=== PATIENT | male | born 1945 | race Caucasian/White ===

== ENCOUNTER 2021-07-06 00:46 | Day surgery (SDC) | payer MEDICARE, SELFPAY ==
[2021-06-24 11:12] VITALS: BMI 25.0
--- NOTE | 2021-07-05 12:37 | P.PNAN_ITS ---
Anes - Initial Pre Proc Eval Procedure: Operation Date: 07/06/21 09:00 Proposed Procedures p Screening Colonoscopy - Kaiden Peñaloza MD Date/Time: 07/05/21 12:37 Surgeon: Kaiden Peñaloza MD Pre Op Diagnosis: hx of colon polyps Patient Data Age: 76 Gender: M Height: 1.75 m Weight: 77 kg Allergies Allergy/AdvReac Type Severity Reaction Status Date / Time No Known Allergies Allergy Verified 07/06/21 07:39 Home Medications Medication Instructions Recorded Confirmed Type aspirin 81 mg tablet,delayed 81 mg PO DAILY 04/22/19 07/06/21 History release carvedilol 6.25 mg tablet 6.25 mg PO BID tablet 04/22/19 07/06/21 History qxgtkzfu-tgk-meege acid 300 1 tablet PO DAILY tablet 04/22/19 07/06/21 History mcg-lycopene 600 mcg-lutein 300 mcg tablet ramipril 5 mg capsule 5 mg PO DAILY 04/22/19 07/06/21 History atorvastatin 80 mg tablet 80 mg PO QHS tablet 11/11/20 07/06/21 History Patient hx anesthesia problems: none Family hx anesthesia problems: none Results Review: All pre-operative results and documents have been reviewed as part of the pre-operative evaluation. [facility] Past Medical History Medical History CAD in [place] artery Dyslipidemia Essential (primary) hypertension Heart attack 2007 History of colon polyps Intention tremor Surgical History Surgical History History of coronary artery stent placement 2007 [place] teeth extracted Family History Family History Father Carcinoma of colon Mother Cerebrovascular accident Social History Social History Smoking status: Never smoker Alcohol intake: never Substance use: never Substance use type: does not use Living arrangements: with family Spiritual care concerns: No Anes - Eval Final PreProcedure Day of Procedure 07/05/21 12:37 Patient weight: overweight Heart: regular rate and rhythm Lungs: clear to auscultation and normal air movement Airway: Mallampati scale class II Neurological: alert and oriented Last oral intake: >/= 8 hours ASA classification: III Emergent: no Anesthetic plan: proceed Anesthesia type and monitoring: general GIVS and standard monitoring Results Review: All pre-operative results and documents have been reviewed as part of the pre-operative evaluation. Informed Consent: The patient's anesthetic plan and its attendant risks and benefits were discussed with the patient/family/POA. Questions were solicited and answers provided to the satisfaction of the patient/family/POA.
[2021-07-06 07:40] VITALS: BP 136/85; PULSE 80; RESP 17; TEMP 36.6; O2SAT 98; BMI 24.5
[2021-07-06] MEDS: LACTATED RINGERS 1,000 ML 150 ML IV CONT (07:54)
--- NOTE | 2021-07-06 08:10 | WPDGICN ---
Assessment and Plan Assessment and plan (1) Family history of colon cancer in father: Code(s): Z80.0 - Family history of malignant neoplasm of digestive organs Status: Acute Assessment and Plan: Patient's father had colon cancer. For this reason surveillance colonoscopy has been advised at 5 year intervals. (2) History of colon polyps: Code(s): Z86.010 - Personal history of colonic polyps Status: Inactive Assessment and Plan: Patient has a prior history of colon polyp. For this reason surveillance colonoscopy is been performed at 5 year intervals. GI Consult Note Consult date/time: 07/06/21 08:10 HPI: Mando Shaikh is a 76 year old male Presents for screening colonoscopy. Patient's current weight appetite and bowel movements are normal. He denies abdominal pain. He has had no bleeding. Family history is significant that his father had colon cancer. Patient himself has had colon polyps in the past. Previously followed by Dr. Zabala, most recent colonoscopy 2016. Patient presents today for neoplasia screening. Review of Systems Review of Systems: All systems reviewed & are unremarkable except as noted in HPI and below PMFSH Past Medical History Medical History (Updated 07/06/21 @ 08:11 by Kaiden Peñaloza MD) CAD in [place] artery Dyslipidemia Essential (primary) hypertension Heart attack 2007 History of colon polyps Intention tremor Surgical History Surgical History History of coronary artery stent placement 2007 [place] teeth extracted Family History Family History Father Carcinoma of colon Mother Cerebrovascular accident Social History Social History Smoking status: Never smoker Alcohol intake: never Substance use: never Substance use type: does not use Living arrangements: with family Spiritual care concerns: No Meds Home Medications and Allergies Home Medications Medication Instructions Recorded Confirmed Type aspirin 81 mg tablet,delayed 81 mg PO DAILY 04/22/19 07/06/21 History release carvedilol 6.25 mg tablet 6.25 mg PO BID tablet 04/22/19 07/06/21 History tambljyv-zln-zmbqb acid 300 1 tablet PO DAILY tablet 04/22/19 07/06/21 History mcg-lycopene 600 mcg-lutein 300 mcg tablet ramipril 5 mg capsule 5 mg PO DAILY 04/22/19 07/06/21 History atorvastatin 80 mg tablet 80 mg PO QHS tablet 11/11/20 07/06/21 History Allergies Allergy/AdvReac Type Severity Reaction Status Date / Time No Known Allergies Allergy Verified 07/06/21 07:39 Vital Signs Vital Signs - 24 hr 07/06/21 07:40 Temperature 97.9 F Pulse Rate 80 Respiratory Rate 17 Blood Pressure 136/85 Pulse Oximetry 98 Exam Narrative: Physical exam reveals patient to be alert. Vital signs stable. HEENT exam is unremarkable. Patient is anicteric. Lungs are clear to auscultation and percussion. Heart is without murmur or extra sounds. Abdominal exam bowel sounds are present soft nontender with no organomegaly. Digital external rectal exam is normal.
[2021-07-06 09:09] VITALS: BP 92/56; PULSE 74; RESP 20; O2SAT 99
[2021-07-06 09:19] VITALS: BP 114/78; PULSE 66; RESP 18; O2SAT 99
[2021-07-06 09:29] VITALS: BP 124/81; PULSE 60; RESP 20; O2SAT 100
== END 2021-07-06 09:40 | disposition home or self-care (01) ==
PROVIDERS: PCP Family Medicine; Visit Provider Internal Medicine Gastroenterology
PROC: 0DJD8ZZ Inspection of Lower Intestinal Tract, Via Natural or Artificial Opening Endoscopic (ICD-10-PCS; CPT 45378; principal; 2021-07-06 09:00)
DX: Z12.11 Encounter for screening for malignant neoplasm of colon (principal); K63.5 Polyp of colon; I10 Essential (primary) hypertension; I25.10 Atherosclerotic heart disease of native coronary artery without angina pectoris; E78.5 Hyperlipidemia, unspecified; G25.2 Other specified forms of tremor; Z95.5 Presence of coronary angioplasty implant and graft; Z80.0 Family history of malignant neoplasm of digestive organs
CPT/HCPCS: 45380; 88305; J2704; J7120

== ENCOUNTER 2021-11-23 08:09 | Outpatient (CLI) | payer MEDICARE, SELFPAY ==
[2021-11-23 18:55] LABS: Basophils Percent Auto 0.7 % (0.2-1.2); Eosinophils Percent Auto 0.7 % (0-4.4); Hematocrit 44.3 % (42.0-52.0); Hemoglobin 14.7 g/dL (14.0-18.0); Immature Granulocyte Absolute 0.01 K/mm3 (0.00-0.031); Immature Granulocyte Percent A 0.3 % (0-0.5); Lymphocytes Absolute Auto 1.23 K/mm3 (0.9-3.2); Lymphocytes Percent Auto 41.8 % (18.3-44.2); Mean Corpuscular HGB Conc 33.2 g/dl (32-36); Mean Corpuscular Hemoglobin 29.8 pg (26-34); Mean Corpuscular Volume 89.9 fl (80-100); Mean Platelet Volume 11.4 fl (7.4-10.4); Monocytes Absolute Auto 0.4 K/mm3 (0.1-0.6); Neutrophils Absolute Auto 1.2 K/mm3 (1.3-6.7); Neutrophils Percent Auto 41.5 % (45.5-73.1); Platelet Count Result 130 k/mm3 (150-375); Red Blood Count 4.93 M/mm3 (4.6-6.20); Red Cell Distribution Width 13.1 % (11.5-14.5); White Blood Count 2.9 K/mm3 (4.5-10.0)
[2021-11-23 19:05] LABS: Alanine Aminotransferase 34 U/L (6-50); Albumin Level 3.8 g/dL (3.5-5.1); Alkaline Phosphatase 88 U/L (38-126); Anion Gap 9 mmol/L (8-16); Aspartate Amino Transferase 50 U/L (17-59); Bilirubin,Total 0.5 mg/dL (0.2-1.3); Blood Urea Nitrogen 15 mg/dL (9-20); Calcium 8.6 mg/dL (8.4-10.2); Carbon Dioxide 30 mmol/L (22-30); Chloride 97 mmol/L (98-107); Cholesterol 102 mg/dL (0-200); Estimated Glomerular Filt Rate > 60; Glucose 94 mg/dL (65-110); HDL Direct 46 mg/dL; Potassium 4.3 mmol/L (3.4-5.0); Sodium 136 mmol/L (137-145); Triglycerides 72 mg/dL (<150)
[2021-11-23 19:16] LABS: LDL Cholesterol Direct 33 mg/dL
== END 2021-11-23 08:10 | disposition home or self-care (01) ==
LOC: ANHGOSHLAB 08:11
PROVIDERS: PCP Family Medicine; Visit Provider Nurse Practitioner
DX: E78.5 Hyperlipidemia, unspecified (principal); I10 Essential (primary) hypertension
CPT/HCPCS: 36415; 80053; 80061; 85025

== ENCOUNTER 2022-05-30 10:32 | Outpatient (CLI) | payer MEDICARE, SELFPAY ==
[2022-05-30 20:47] LABS: Vitamin D 25 Hydroxy 41.2 ng/mL
[2022-05-30 20:51] LABS: Alanine Aminotransferase 49 U/L (6-50); Albumin Level 4.4 g/dL (3.5-5.1); Alkaline Phosphatase 111 U/L (38-126); Anion Gap 7 mmol/L (8-16); Aspartate Amino Transferase 67 U/L (17-59); Bilirubin,Total 0.9 mg/dL (0.2-1.3); Blood Urea Nitrogen 11 mg/dL (9-20); Calcium 9.2 mg/dL (8.4-10.2); Carbon Dioxide 29 mmol/L (22-30); Chloride 103 mmol/L (98-107); Estimated Glomerular Filt Rate > 60; Glucose 82 mg/dL (65-110); Potassium 4.2 mmol/L (3.4-5.0); Sodium 139 mmol/L (137-145)
[2022-05-30 21:12] LABS: Prostate Specific Antigen 0.8 ng/mL (< OR = 4.0)
== END 2022-05-30 10:33 | disposition home or self-care (01) ==
LOC: ANHGOSHLAB 10:34
PROVIDERS: PCP Family Medicine; Visit Provider Family Medicine
DX: E53.8 Deficiency of other specified B group vitamins (principal); E78.5 Hyperlipidemia, unspecified; I10 Essential (primary) hypertension; Z12.5 Encounter for screening for malignant neoplasm of prostate; G25.2 Other specified forms of tremor; E55.9 Vitamin D deficiency, unspecified
CPT/HCPCS: 36415; 80053; 82306; 82607; 84153; 84443; G0103

== ENCOUNTER 2022-12-19 10:53 | Outpatient (CLI) | payer MEDICARE, SELFPAY ==
[2022-12-19 18:42] LABS: Alanine Aminotransferase 36 U/L (6-50); Albumin Level 4.1 g/dL (3.5-5.1); Alkaline Phosphatase 105 U/L (38-126); Anion Gap 2 mmol/L (8-16); Aspartate Amino Transferase 39 U/L (17-59); Bilirubin,Total 0.7 mg/dL (0.2-1.3); Blood Urea Nitrogen 10 mg/dL (9-20); Carbon Dioxide 32 mmol/L (22-30); Chloride 104 mmol/L (98-107); Estimated Glomerular Filt Rate > 60; Glucose 97 mg/dL (65-110); Potassium 4.5 mmol/L (3.4-5.0); Sodium 138 mmol/L (137-145)
== END 2022-12-19 10:54 | disposition home or self-care (01) ==
PROVIDERS: PCP Family Medicine; Visit Provider Family Medicine
DX: E78.5 Hyperlipidemia, unspecified (principal); I25.10 Atherosclerotic heart disease of native coronary artery without angina pectoris; I10 Essential (primary) hypertension; Z79.899 Other long term (current) drug therapy
CPT/HCPCS: 36415; 80053

== ENCOUNTER 2023-06-01 08:25 | Outpatient (CLI) | payer MEDICARE, SELFPAY ==
[2023-06-01 19:27] LABS: Alanine Aminotransferase 50 U/L (6-50); Albumin Level 4.2 g/dL (3.5-5.1); Alkaline Phosphatase 115 U/L (38-126); Anion Gap 4 mmol/L (8-16); Aspartate Amino Transferase 55 U/L (17-59); Bilirubin,Total 0.8 mg/dL (0.2-1.3); Blood Urea Nitrogen 10 mg/dL (9-20); Calcium 9.7 mg/dL (8.4-10.2); Carbon Dioxide 32 mmol/L (22-30); Chloride 104 mmol/L (98-107); Cholesterol 128 mg/dL (0-200); Estimated Glomerular Filt Rate > 60; Glucose 98 mg/dL (65-110); HDL Direct 65 mg/dL; Potassium 4.5 mmol/L (3.4-5.0); Sodium 140 mmol/L (137-145); Triglycerides 84 mg/dL (<150)
[2023-06-01 19:33] LABS: Basophils Absolute Auto 0.1 K/mm3 (0.0-0.1); Basophils Percent Auto 1.1 % (0.2-1.2); Eosinophils Absolute Auto 0.4 K/mm3 (0-0.3); Eosinophils Percent Auto 8.4 % (0-4.4); Hematocrit 47.1 % (42.0-52.0); Hemoglobin 15.5 g/dL (14.0-18.0); Lymphocytes Absolute Auto 1.66 K/mm3 (0.9-3.2); Mean Corpuscular HGB Conc 32.9 g/dl (32-36); Mean Corpuscular Hemoglobin 29.9 pg (26-34); Mean Corpuscular Volume 90.9 fl (80-100); Monocytes Absolute Auto 0.5 K/mm3 (0.1-0.6); Monocytes Percent Auto 9.5 % (2.6-8.5); Neutrophils Absolute Auto 2.2 K/mm3 (1.3-6.7); Platelet Count Result 175 k/mm3 (150-375); Red Blood Count 5.18 M/mm3 (4.6-6.20); Red Cell Distribution Width 12.5 % (11.5-14.5); White Blood Count 4.7 K/mm3 (4.5-10.0)
[2023-06-01 19:56] LABS: LDL Cholesterol Direct 58 mg/dL
[2023-06-01 20:15] LABS: Prostate Specific Antigen 0.9 ng/mL (< OR = 4.0)
[2023-06-01 20:46] LABS: Vitamin D 25 Hydroxy 36.2 ng/mL
== END 2023-06-01 08:26 | disposition home or self-care (01) ==
LOC: ANHGOSHLAB 08:27
PROVIDERS: PCP Family Medicine; Visit Provider Family Medicine
DX: E78.5 Hyperlipidemia, unspecified (principal); E53.8 Deficiency of other specified B group vitamins; Z12.5 Encounter for screening for malignant neoplasm of prostate; I10 Essential (primary) hypertension; G25.2 Other specified forms of tremor; E55.9 Vitamin D deficiency, unspecified
CPT/HCPCS: 36415; 80053; 80061; 82306; 82607; 84153; 84443; 85025; G0103

== ENCOUNTER 2023-12-21 09:29 | Outpatient (CLI) | payer MEDICARE, SELFPAY ==
[2023-12-21 16:47] LABS: Alanine Aminotransferase 33 U/L (6-50); Albumin Level 4.2 g/dL (3.5-5.1); Alkaline Phosphatase 111 U/L (38-126); Anion Gap 6 mmol/L (4-12); Aspartate Amino Transferase 74 U/L (17-59); Bilirubin,Total 0.6 mg/dL (0.2-1.3); Blood Urea Nitrogen 11 mg/dL (9-20); Calcium 9.3 mg/dL (8.4-10.2); Carbon Dioxide 30 mmol/L (22-30); Chloride 102 mmol/L (98-107); Estimated Glomerular Filt Rate > 60; Glucose 82 mg/dL (65-110); Potassium 4.2 mmol/L (3.4-5.0); Sodium 138 mmol/L (137-145)
== END 2023-12-21 09:30 | disposition home or self-care (01) ==
PROVIDERS: PCP Family Medicine; Visit Provider Family Medicine
DX: I10 Essential (primary) hypertension (principal); Z79.899 Other long term (current) drug therapy
CPT/HCPCS: 36415; 80053

== ENCOUNTER 2024-06-12 10:22 | Outpatient (CLI) | payer MEDICARE, SELFPAY ==
--- OUTSIDE RECORDS SUMMARY | 2024-06-12 11:50 | XMS_ITS | Clinical Summary ---
Author Organization [facility] Address [address], [address] [address] Phone Care Team Providers Care Hall Director Name Role Phone Pablo Akers MD Primary Care Provider [phone] Kaiden Zabala DO Unavailable [phone] Allergies No known active allergies Medications polyethylene glycol (MIRALAX) Powder Mix the entire bottle with 64 oz of a clear liquid. Use as directed by the office for colonoscopy prep. 255 g 0 6 Active atorvastatin (LIPITOR) 80 MG Tablet Take 80 mg by mouth daily. 11 7 Active carvedilol (COREG) 6.25 MG Tablet Take 1 Tab by mouth 2 times daily. 11 7 Active ramipril (ALTACE) 5 MG Capsule Take 5 mg by mouth daily. 5 7 Active Aspirin 81 MG Tablet Take 81 mg by mouth daily. Active Multiple Vitamins-Minera ls (MULTIVITAMIN PO) Take 1 Tab by mouth daily. Active fish oil-omega-3 fatty acids 1000 MG Capsule Take 1,000 mg by mouth daily. Active Immunizations Immunization Administration Dates Next Due Covid-19, Mrna, Lnp-s, Pf, 30 Mcg/0.3 Ml Dose (Vanessa dunbar) 06/16/2020,05/21/2020 Family History Medical History Relation Name Comments Colon Cancer Father Stroke Mother Heart Disease Sister Relation Name Status Comments Father Mother Sister Social History Tobacco Use Types Packs/Day Years Used Date Smoking Tobacco: Never Smokeless Tobacco: Never Alcohol Use Standard Drinks/Week Comments No 0 (1 standard drink = 0.6 oz pur e alcohol) Sex and Gender Information Value Date Recorded Sex Assigned at Not on file Legal Sex Male 10:14 PM CDT Gender Identity Not on file Sexual Orientation Not on file Plan of Treatment Health Maintenance Due Date Last Done Comments Hepatitis C Virus (HCV) Screening 1945 TdaP Immunization 1945 Zoster Immunization (1 of 2) 06/14/1993 Respiratory Syncytial Virus (RSV) Immunization (Adult) (1 - 1-dose 75+ series) 06/14/2018 Influenza Immunization (#1) 11/26/202301/25, 02/01/2018 SARS-COV-2 Immunization ( season) 2023 02/02/2021, 06/16/2020, 05/21/2020 DTaP/Tdap/Td Immunization Discontinued 08/04/2008 Pneumococcal Immunization (50+ years) Completed 02/23/2016, 08/04/2008 Pneumococcal Immunization Combined Discontinued 02/23/2016, 08/04/2008 Hepatitis B Immunization Aged Out No longer eligible based on patient's age to complete this topic Meningococcal Immunization (ACWY) Aged Out No longer eligible based on patient's age to complete this topic Rotavirus Immunization Aged Out No lo nger eligible based on patient's age to complete this topic Insurance [facility] Care Teams Hall Director Relationship Specialty Start Date End Date Pablo Akers MD [address] [place] [address] PCP - General Family Medicine 02/16/16 Kaiden Zabala DO [address] [place] [address] Gastroenterology 05/25/16
--- OUTSIDE RECORDS SUMMARY | 2024-06-12 11:50 | XMS_ITS | Clinical Summary ---
Author Organization [facility] [address] Address [address] [place] [address] Care Team Providers Care Newspaper Peddler Name Role Phone Ander Clark MD Primary Care Provider Allergies No known active allergies Medications aspirin (ENTERIC COATED ASPIRIN) 81 mg tablet take 1 tablet (81MG) by oral route every day 30 0 9 Active multivitamin tabletIndicatio ns:Vitamin Deficiency Prevention Take 1 tablet by mouth Active ramipriL (ALTACE) 5 mg capsule TAKE 1 CAPSULE BY MOUTH EVERY DAY 90 capsule 3 4 Active atorvastatin (LIPITOR) 80 mg tablet TAKE 1 TABLET BY MOUTH EVERY DAY 90 tablet 3 4 Active carvediloL (COREG) 6.25 mg tablet Take 1 tablet (6.25 mg total) by mouth 2 (two) times a day 7 Active carvediloL (COREG) 6.25 mg tablet TAKE 1 TABLET BY MOUTH TWICE A DAY WITH FOOD 180 tablet 2 5 05/20/19 25 Discontinu ed(Patient Reported) Active Problems Problem Noted Date Diagnosed Date Essential hypertension 05/16/2018 S/P drug eluting coronary stent placement 2018 Essential tremor 05/24/2017 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/10/2015 Overview (06/30/2016): Old [place] (myocardial infarction) Post percutaneous transluminal coronary angiopla sty 10/08/2013 Overview (06/30/2016): STATUS-POST PTCA Chronic ischemic heart disease 08/10/2013 Overview (06/29/2016): CHR ISCHEMIC HRT DIS NEC Coronary arteriosclerosis in [place] artery 08/10 Overview (06/30/2016): CRNRY ATHRSCL NATVE VSSL 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 Overview (06/30/2016): MIXED HYPERLIPIDEMIA Acute myocardial infarction of anterior wall Overview (06/30/2016): AMI ANTERIOR WALL,SUBSEQ Encounters Date Type Department Care Team Description 05/20/2024 11:45 AM AUGER SUPERVISOR Office Visit [facility] [address] [place] [address] Dona Pacheco MD Multiple-type hyperlipidemia (Primary Dx); Coronary arteriosclerosis in [place] artery; S/P drug eluting coronary stent placement; Essential hypertension from Last 3 Months Medical History Medical History Date Comments 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 CAD (coronary artery disease) 2008 H/ O ant VA and LAD stent Social History Tobacco Use Types Packs/Day Years Used Date Smoking Tobacco: Former Smokeless Tobacco: Never Tobacco Cessation:Counseling Given: Not Answered Alcohol Use Standard Drinks/Week Comments No 0 (1 standard drink = 0.6 oz pur e alcohol) Sex and Gender Information Value Date Recorded Sex Assigned at Not on file Legal Sex Male 8:03 PM AUGER SUPERVISOR Gender Identity Not on file Sexual Orientation Not on file Obstetrics History Last Filed Vital Signs Vital Sign Reading Time Taken Comments Blood Pressure 116/62 05/20/2024 11:39 AM AUGER SUPERVISOR Pulse 57 05/20/2024 11:39 AM AUGER SUPERVISOR Temperature - - Respiratory Rate - - Oxygen Saturation 93% 05/20/2024 11:39 AM AUGER SUPERVISOR Inhaled Oxygen Concentration - - Weight 76.2 kg (168 lb) 05/20/2024 11:39 AM AUGER SUPERVISOR Height 175.3 cm (5' 9 ) 05/20/2024 11:39 AM AUGER SUPERVISOR Body Mass Index 24.81 05/20/2024 11:39 AM AUGER SUPERVISOR Plan of Treatment Health Maintenance Due Date Last Done Comments Depression Screening 1945 Fall Risk Assessment 1945 Hepatitis B Screening 06/14[birth year]1961 Abdominal Aortic Aneurysm (AAA) Screen 06/14/2008 Well Visit 65+ 06/14/2008 Zoster Vaccine (2 of 2) 10/05/2020 08/10/2020 Covid-19 Vaccine (3 - season) 2023, 05/21/2020 Influenza Vaccine (#1) 2023 02/07/2019, 2017 DTaP/Tdap/Td Vaccine (2 - Td or Tdap) 08/10/2030, 08/04/2008 Pneumococcal vaccine 65+ Completed 02/23/2016, 07/25 Procedures Procedure Name Priority Date/Time Associated Diagnosis Comments POCT LIPID PANEL Routine 05/20/2024 11:5 2 AM AUGER SUPERVISOR Multiple-type hyperlipidemia Coronary arteriosclerosis in [place] artery from Last 3 Months Results * POCT lipid panel (05/20/2024 11:52 AM AUGER SUPERVISOR) Triglycerides, POC 70 mg/dL LDL Cholesterol POC 64 mg/dL Non-HDL Cholesterol, POC 71 mg/dL Cholesterol Total, POC 149 mg/dL Capillary blood 05/20/2024 1 1:52 AM AUGER SUPERVISOR Dona Pacheco MD POINT OF CARE TEST O RDERABLES Final Result from Last 3 Months Insurance MEDICARE MEDICARE [facility] MEDICARE SUPPLEMENT Care Teams Newspaper Peddler Relationship Specialty Start Date End Date Ander Clark MD PCP - General Family Practice 05/16/18
--- OUTSIDE RECORDS SUMMARY | 2024-06-12 11:50 | XMS_ITS | Clinical Summary ---
Author Organization [facility] Address [facility] [place] [address] Care Team Providers Care Hospice Fellow Name Role Phone Unavailable Primary Care Provider Unavailabl e Social History Tobacco Use Types Packs/Day Years Used Date Smoking Tobacco: Never Assessed Sex and Gender Information Value Date Recorded Sex Assigned at Not on file Legal Sex Male 7:06 PM CDT Gender Identity Not on file Sexual Orientation Not on file Plan of Treatment Health Maintenance Due Date Last Done Comments DTaP, Tdap and Td Vaccines ( 1 - Tdap) 06/14/1962 Zoster Vaccines (1 of 2) 06/14/1993 Pneumococcal Vaccine: 65+ Ye ars (1 of 1 - PCV) 06/14/2008 RSV Immunization or 60+ Years (1 - 1-dose 75+ series) 06/14/2018 COVID-19 Vaccine ( - 2023-2 5 season) 2023 Influenza Adult (#1) 2023 Meningococcal B Vaccine Aged Out No l onger eligible based on patient's age to complete this topic Meningococcal Vaccine Aged Out No keshia tja eligible based on patient's age to complete this topic RSV Immunizations Under 20 Months Aged Out No longer eligible based on patient's age to complete this topic
--- OUTSIDE RECORDS SUMMARY | 2024-06-12 11:50 | XMS_ITS | Referral Summary ---
Author Organization [facility] [address] [place] [address] Care Team Providers Care Communications Assistant Name Role Phone nAder Clark MD Primary Care Provider Encounters Date Type Department Care Team Description 05/20/2024 11:45 AM TROUBLE DISPATCHER Office Visit [facility] [address] [place] [address] Dona Pachceo MD Multiple-type hyperlipidemia (Primary Dx); Coronary arteriosclerosis in [place] artery; S/P drug eluting coronary stent placement; Essential hypertension from Last 3 Months Allergies No known active allergies Medications aspirin [...] 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/10/2015 Overview (06/30/2016): Old [place] (myocardial infarction) Post percutaneous transluminal coronary angiopla sty 10/08/2013 Overview (06/30/2016): STATUS-POST PTCA Chronic ischemic heart disease 08/10/2013 Overview (06/29/2016): CHR ISCHEMIC HRT DIS NEC Coronary arteriosclerosis in [place] artery 08/10 Overview (06/30/2016): CRNRY ATHRSCL NATVE VSSL 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 Overview (06/30/2016): MIXED HYPERLIPIDEMIA Acute myocardial infarction of anterior wall Overview (06/30/2016): AMI ANTERIOR WALL,SUBSEQ Social History Tobacco Use Types Packs/Day Years Used Date Smoking Tobacco: Former Smokeless Tobacco: Never Tobacco Cessation:Counseling Given: Not Answered Alcohol Use Standard Drinks/Week Comments No 0 (1 standard drink = 0.6 oz pur e alcohol) Sex and Gender Information Value Date Recorded Sex Assigned at Not on file Legal Sex Male 8:03 PM TROUBLE DISPATCHER Gender Identity Not on file Sexual Orientation Not on file Last Filed Vital Signs Vital Sign Reading Time Taken Comments Blood Pressure 116/62 05/20/2024 11:39 AM TROUBLE DISPATCHER Pulse 57 05/20/2024 11:39 AM TROUBLE DISPATCHER Temperature - - Respiratory Rate - - Oxygen Saturation 93% 05/20/2024 11:39 AM TROUBLE DISPATCHER Inhaled Oxygen Concentration - - Weight 76.2 kg (168 lb) 05/20/2024 11:39 AM TROUBLE DISPATCHER Height 175.3 cm (5' 9 ) 05/20/2024 11:39 AM TROUBLE DISPATCHER Body Mass Index 24.81 05/20/2024 11:39 AM TROUBLE DISPATCHER Plan of Treatment Not on file Procedures Procedure Name Priority Date/Time Associated Diagnosis Comments POCT LIPID PANEL Routine 05/20/2024 11:5 2 AM TROUBLE DISPATCHER Multiple-type hyperlipidemia Coronary arteriosclerosis in [place] artery from Last 3 Months Results * POCT lipid panel (05/20/2024 11:52 AM TROUBLE DISPATCHER) Triglycerides, POC 70 mg/dL LDL Cholesterol POC 64 mg/dL Non-HDL Cholesterol, POC 71 mg/dL Cholesterol Total, POC 149 mg/dL Capillary blood 05/20/2024 1 1:52 AM TROUBLE DISPATCHER us Dona Pacheco MD POINT OF CARE TEST O RDERABLES Final Result from Last 3 Months Insurance MEDICARE MEDICARE [facility] MEDICARE SUPPLEMENT Care Teams Communications Assistant Relationship Specialty Start Date End Date Ander Clark MD PCP - General Family Practice 05/16/18
[2024-06-12 13:18] LABS: Basophils Percent Auto 0.8 % (0.2-1.2); Eosinophils Absolute Auto 0.2 K/mm3 (0-0.3); Eosinophils Percent Auto 4.7 % (0-4.4); Hematocrit 45.7 % (42.0-52.0); Hemoglobin 15.1 g/dL (14.0-18.0); Immature Granulocyte Absolute 0.01 K/mm3 (0.00-0.031); Immature Granulocyte Percent A 0.2 % (0-0.5); Lymphocytes Absolute Auto 1.88 K/mm3 (0.9-3.2); Lymphocytes Percent Auto 36.4 % (18.3-44.2); Mean Corpuscular Hemoglobin 30.1 pg (26-34); Mean Platelet Volume 10.9 fl (7.4-10.4); Monocytes Absolute Auto 0.5 K/mm3 (0.1-0.6); Monocytes Percent Auto 8.7 % (2.6-8.5); Neutrophils Absolute Auto 2.5 K/mm3 (1.3-6.7); Neutrophils Percent Auto 49.2 % (45.5-73.1); Platelet Count Result 170 k/mm3 (150-375); Red Blood Count 5.02 M/mm3 (4.6-6.20); Red Cell Distribution Width 13.1 % (11.5-14.5); White Blood Count 5.2 K/mm3 (4.5-10.0)
[2024-06-12 13:35] LABS: Hemoglobin A1C 5.4 % (<5.7)
[2024-06-12 14:00] LABS: Vitamin D 25 Hydroxy 31.9 ng/mL
[2024-06-12 16:20] LABS: Alanine Aminotransferase 43 U/L (6-50); Albumin Level 4.4 g/dL (3.5-5.1); Alkaline Phosphatase 112 U/L (38-126); Anion Gap 7 mmol/L (4-12); Aspartate Amino Transferase 60 U/L (17-59); Bilirubin,Total 0.8 mg/dL (0.2-1.3); Blood Urea Nitrogen 9 mg/dL (9-20); Calcium 9.5 mg/dL (8.4-10.2); Carbon Dioxide 29 mmol/L (22-30); Chloride 103 mmol/L (98-107); Cholesterol 127 mg/dL (0-200); Estimated Glomerular Filt Rate > 60; Glucose 94 mg/dL (65-110); HDL Direct 65 mg/dL; Potassium 4.7 mmol/L (3.4-5.0); Sodium 139 mmol/L (137-145); Triglycerides 81 mg/dL (<150)
[2024-06-12 16:31] LABS: LDL Cholesterol Direct 39 mg/dL
[2024-06-12 16:51] LABS: Prostate Specific Antigen 0.8 ng/mL (< OR = 4.0)
== END 2024-06-12 10:23 | disposition home or self-care (01) ==
LOC: ANHGOSHLAB 10:23
PROVIDERS: PCP Family Medicine; Visit Provider Family Medicine
DX: E78.5 Hyperlipidemia, unspecified (principal); E53.8 Deficiency of other specified B group vitamins; I10 Essential (primary) hypertension; R73.9 Hyperglycemia, unspecified; E55.9 Vitamin D deficiency, unspecified; Z12.5 Encounter for screening for malignant neoplasm of prostate
CPT/HCPCS: 36415; 80053; 80061; 82306; 82607; 83036; 84153; 84443; 85025; G0103

== ENCOUNTER 2024-07-08 14:15 | Outpatient (RCR) | payer MEDICARE, SELFPAY ==
--- NOTE | 2024-06-18 08:54 | OTOPEVAL1 ---
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 He reports the left middle finger is stiff, lacks extension at the PIP joint. He reports he has more stiffness and tightness vs. pain. Intermittent paresthesia, which he reports is worse with prolonged positioning at night. He feels pretty good throughout the day when he's up, moving, and using his hands. Reported Pain Level Pain Score 0: Self Report Assessment OT Clinical Summary Patient referred to OT with dx of flexion deformity of bilateral hands/finger joints. He presents with arthritic changes to the PIP/DIP joints of his fingers, left worse than right. After a set of active ROM and putty exercises the fingers became more limber and patient reports feeling better. Plan to have patient complete his HEP x3 weeks independently and return for a reassessment/follow up and assess for discharge/ HEP progression. Thank you for this referral. Plan of Care Interventions Therapeutic Exercise,Manual Therapy,Therapeutic Activities,Paraffin OT Services Indicated Yes Treatment Frequency and follow up in 3 weeks Duration These treatments will address the objective and functional deficits as defined above. The patient will be advanced safely and appropriately in order for the patient to progress towards his/her prior level of function. Additional exercises will be introduced and as well as a comprehensive home exercise program upon discharge, if needed, ?to ensure carryover of functional gains achieved in the clinic. This treatment plan has been reviewed and agreement upon by the patient.
--- NOTE | 2024-06-18 08:54 | OPREHPOC ---
Outpatient Therapy Plan of Care This is a Multidisciplinary Plan of Care that may contain components documented by all disciplines (PT, OT, and ST.) OT Problem 1 OT Problem #1 Knowledge Deficit OT Goal 1 Goal / Goal Update Pt to be indep with HEP. Target Visit 2 OT Problem 2 OT Problem #2 Impaired Flexibility OT Goal 1 Goal / Goal Update Patient to improve ROM of the left hand to improve flexibility for ADLs and fine motor tasks: - MF PIP ext from -30 to -15 - decrease hook fist gap by 0.5 to 1 cm on each finger Target Visit 2 OT Problem 3 OT Problem #3 Impaired Strength OT Goal 1 Goal / Goal Update Patient to improve gross finisher wallboard and plasterboard strength of bilateral hands by 5 lbs. each to improve functional finisher wallboard and plasterboard strength for ADLs.
--- NOTE | 2024-07-08 14:57 | OTOPDC ---
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 He states he feels a little more flexible in his hands, but that he continues to have the most stiffness first thing in the morning. He continues to report no functional limitations, just stiffness in the finger joints. Reported Pain Level Pain Score 0: Self Report Assessment OT Clinical Summary Patient referred to OT with dx of flexion deformity of bilateral hands/finger joints. He presents with arthritic changes to the PIP/DIP joints of his fingers, left worse than right. He has been working on ROM and strengthening HEP x3 weeks. Functional flexion of his fingers has improved. Engine House Helper strength has improved. PIP extension of the middle finger remained at 30 degrees of extension lag. Passive 15 degrees extension lag. Reviewed HEP, expectations, and arthritis treatment. Patient to continue to maintain his ROM and strength for optimal meterman use, strength, and flexibility of his hands. Plan of Care OT Services Indicated No
== END 2024-07-09 08:34 | disposition home or self-care (01) ==
LOC: ANHHIOT 14:15
PROVIDERS: PCP Family Medicine; Visit Provider Family Medicine
DX: M21.241 Flexion deformity, right finger joints (principal); M21.242 Flexion deformity, left finger joints; M25.549 Pain in joints of unspecified hand
CPT/HCPCS: 97110; 97165

== ENCOUNTER 2024-08-05 09:18 | Outpatient (CLI) | payer MEDICARE, SELFPAY ==
--- NOTE | ~2024-08-05 | MR_ITS ---
EXAMINATION: MR brain/brain stem wo con DATE: 08/05/2024 10:27 INDICATION: Other specified forms tremor TECHNIQUE: Magnetic resonance imaging (MRI) of the brain and brainstem was performed without intraven ous contrast. Sequences included sagittal and axial T1-weighted SE, axial diffusion-weighted FS SE, a xial T2*-weighted GRE, axial T2-weighted FLAIR, and axial T2-weighted FSE. Apparent diffusion coeffic ient (ADC) maps were created. COMPARISON: None. FINDINGS: There are no areas of restricted diffusion to suggest acute infarction. No intracranial hemorrhage or abnormal intracranial mass lesion. There are scattered areas of nonspecific increased T2-weighted si gnal intensity in the cerebral white matter, predominantly involving the deep and periventricular whi te matter. There are no intraparenchymal signal abnormalities seen on the other pulse sequences. Symm etric prominence of the sulci and lateral ventricles consistent with mild age-appropriate diffuse cer ebral volume loss. There are no abnormal extra-axial fluid collections. Flow voids are seen in the ce rebral arteries on the T2-weighted sequences consistent with their expected patency. Left vertebral a rtery is dominant. Changes of bilateral intraocular lens replacement. Mucosal thickening the paranasa l sinuses most prominent in the ethmoid sinuses. IMPRESSION: 1. Age-related changes including mild diffuse on loss and nonspecific mild scattered white matter T2 hyperintensity consistent with chronic small vessel ischemic disease. No acute intracranial process. Reviewed, dictated and finalized at location A. IMPRESSION: 1. Age-related changes including mild diffuse on loss and nonspecific mild scat tered white matter T2 hyperintensity consistent with chronic small vessel ische guilherme disease. No acute intracranial process.
--- NOTE | ~2024-08-05 | XR_ITS ---
4 VIEWS SKULL Ordering provider: Marcello Fox MD History: . R/O FB FOR MRI CLEARANCE . Comparison: None. FINDINGS: BONES: No fracture. RADIO OPAQUE FOREIGN BODY: None. SOFT TISSUES: Normal. IMPRESSION: Normal study. Reviewed, dictated and finalized at location A. IMPRESSION: Normal study.
--- OUTSIDE RECORDS SUMMARY | 2024-08-05 09:25 | XMS_ITS | Clinical Summary ---
Author Organization [facility] Address [address], [address] [address] Phone Care Team Providers Care General Activities Therapist Name Role Phone Pablo Akers MD Primary Care Provider [phone] Kaiden Zabala DO Unavailable Allergies No known active allergies Medications polyethylene [...] patient's age to complete this topic Insurance [facility] Care Teams General Activities Therapist Relationship Specialty Start Date End Date Pablo Akers MD [address] [place] [address] PCP - General Family Medicine 02/16/16 Kaiden Zabala DO [address] [place] [address] Gastroenterology 05/25/16
--- OUTSIDE RECORDS SUMMARY | 2024-08-05 09:25 | XMS_ITS | Referral Summary ---
Author Organization [facility] [place] [address] [facility] [address] Address [address] [place] [address] Care Team Providers Care Precision Honer Name Role Phone Ander Clark MD Primary Care Provider Encounters Date Type Department Care Team Description 05/20/2024 11:45 AM AIRCRAFT TIME CLERK Office Visit [facility] Cardiology [address] [place] [address] Dona Pacheco MD Multiple-type hyperlipidemia (Primary Dx); Coronary arteriosclerosis in [place] artery; S/P drug eluting coronary stent placement; Essential hypertension from Last 3 Months Allergies No known active allergies Medications aspirin (ENTERIC COATED ASPIRIN) 81 mg tablet take 1 tablet (81MG) by oral route every day 30 0 9 Active multivitamin tabletIndicati ons:Vitamin Deficiency Prevention Take 1 tablet by mouth Active carvediloL (COREG) 6.25 mg tablet Take 1 tablet (6.25 mg total) by mouth 2 (two) times a day 7 Active ramipriL (ALTACE) 5 mg capsule Take 1 capsule (5 mg total) by mouth daily 90 capsule 3 5 Active atorvastatin (LIPITOR) 80 mg tablet TAKE 1 TABLET BY MOUTH EVERY DAY 90 tablet 3 5 Active atorvastatin (LIPITOR) 80 mg tablet TAKE 1 TABLET BY MOUTH EVERY DAY 90 tablet 3 4 07/19/19 25 Discontinued Active Problems Problem Noted Date Diagnosed Date Essential hypertension 05/16/2018 S/P drug eluting coronary stent placement 2018 Essential tremor 05/24/2017 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/10/2015 Overview (06/30/2016): Old [place] (myocardial infarction) Post percutaneous transluminal coronary angiopla sty 10/08/2013 Overview (06/30/2016): STATUS-POST PTCA Chronic ischemic heart disease 08/10/2013 Overview (06/29/2016): CHR ISCHEMIC HRT DIS NEC Coronary arteriosclerosis in [place] artery 08/10 Overview (06/30/2016): CRNRY ATHRSCL NATVE [...] on file Legal Sex Male 8:03 PM AIRCRAFT TIME CLERK Gender Identity Not on file Sexual Orientation Not on file Last Filed Vital Signs Vital Sign Reading Time Taken Comments Blood Pressure 116/62 05/20/2024 11:39 AM AIRCRAFT TIME CLERK Pulse 57 05/20/2024 11:39 AM AIRCRAFT TIME CLERK Temperature - - Respiratory Rate - - Oxygen Saturation 93% 05/20/2024 11:39 AM AIRCRAFT TIME CLERK Inhaled Oxygen Concentration - - Weight 76.2 kg (168 lb) 05/20/2024 11:39 AM AIRCRAFT TIME CLERK Height 175.3 cm (5' 9 ) 05/20/2024 11:39 AM AIRCRAFT TIME CLERK Body Mass Index 24.81 05/20/2024 11:39 AM AIRCRAFT TIME CLERK Plan of Treatment Not on file Procedures Procedure Name Priority Date/Time Associated Diagnosis Comments POCT LIPID PANEL Routine 05/20/2024 11:5 2 AM AIRCRAFT TIME CLERK Multiple-type hyperlipidemia Coronary arteriosclerosis in [place] artery from Last 3 Months Results * POCT lipid panel (05/20/2024 11:52 AM AIRCRAFT TIME CLERK) Triglycerides, POC 70 mg/dL LDL Cholesterol POC 64 mg/dL Non-HDL Cholesterol, POC 71 mg/dL Cholesterol Total, POC 149 mg/dL Capillary blood 05/20/2024 1 1:52 AM AIRCRAFT TIME CLERK Dona Pacheco MD POINT OF CARE TEST O RDERABLES Final Result from Last 3 Months Insurance MEDICARE MEDICARE [facility] MEDICARE SUPPLEMENT Care Teams Precision Honer Relationship Specialty Start Date End Date Ander Clark MD PCP - General Family Practice 05/16/18
--- OUTSIDE RECORDS SUMMARY | 2024-08-05 09:25 | XMS_ITS | Clinical Summary ---
Author Organization [facility] Address [address] [place] [address] Care Team Providers Care Cash Applications Associate Name Role Phone Ander Clark MD Primary Care Provider Allergies No known active allergies Medications carvedilol (COREG) 6.25 MG tablet Take 1 tablet (6.25 mg total) by mouth 2 (two) times daily. Active ramipril (ALTACE) 5 MG capsule Take 1 capsule (5 mg total) by mouth daily. Active atorvastatin (LIPITOR) 80 MG tablet Take 1 tablet (80 mg total) by mouth nightly at bedtime. Active primidone (MYSOLINE) 50 MG tablet Take 0.5 tablets (25 mg total) by mouth daily. Active aspirin EC (ECOTRIN) 81 MG tablet Take 1 tablet (81 mg total) by mouth daily. Active Encounters Date Type Department Care Team Description 07/22/2024 10:10 AM CDT - 07/22/2024 10:50 AM CDT Surgery [facility] [address] [place] [address] Jerome Shah MD CATARACT REMOVAL WITH IOL IMPLANT 07/22/2024 9:59 AM CDT Anesthesia Event [facility] [address] [place] [address] Martina Mccray CRNA Hitt, Tracy A, CRNA 07/22/2024 9:20 AM CDT - 07/22/2024 10:35 AM CDT Hospital Encounter [facility] [address] [place] [address] Jerome Shah MD Discharge Disposition: Home or Self Care (Routine Discharge) 07/22/2024 Travel 06/24/2024 10:19 AM CDT - 06/24/2024 11:00 AM CDT Surgery [facility] [address] [place] [id number] Jerome Shah MD CATARACT REMOVAL WITH IOL IMPLANT 06/24/2024 9:47 AM CDT Anesthesia Event [facility] [address] [place] [address] Phuong Henderson, Martina River, FOUNDER AND CHIEF EXECUTIVE OFFICER 06/24/2024 8:57 AM CDT - 06/24/2024 10:22 AM CDT Hospital Encounter [facility] [address] [place] [address] Jerome Shah MD Discharge Disposition: Home or Self Care (Routine Discharge) 06/24/2024 Travel from Last 3 Months Social History Tobacco Use Types Packs/Day Years Used Date Smoking Tobacco: Never Smokeless Tobacco: Never Tobacco Cessation:Counseling Given: Not Answered Alcohol Use Standard Drinks/Week Comments Never 0 (1 standard drink = 0.6 oz pur e alcohol) Sex and Gender Information Value Date Recorded Sex Assigned at Not on file Legal Sex Male 7:06 PM CDT Gender Identity Not on file Sexual Orientation Not on file Last Filed Vital Signs Vital Sign Reading Time Taken Comments Blood Pressure 126/77 07/22/2024 10:26 AM CDT Pulse 54 07/22/2024 10:26 AM CDT Temperature 36.1 C (96.9 F) 07/22/2024 9:33 AM CDT Respiratory Rate 16 07/22/2024 9:33 AM CDT Oxygen Saturation 100% 07/22/2024 10:26 AM CDT Inhaled Oxygen Concentration - - Weight 75.3 kg (166 lb) 07/22/2024 9:33 AM CDT Height 170.2 cm (5' 7 ) 07/22/2024 9:33 AM CDT Body Mass Index 26 07/22/2024 9:33 AM CDT Plan of Treatment Health Maintenance Due Date Last Done Comments Annual Medicare Wellness Visit 06/14/2008 RSV Immunization or 60+ Years (1 - 1-dose 75+ series) 06/14/2018 COVID-19 Vaccine ( season) 2024 01/30/2024, 02/08/2023, 02/08/2022, Additional history exists DTaP, Tdap and Td Vaccines (2 - Td or Tdap) 08/10/2030 08/10/2020, 08/04/2008 Pneumococcal Vaccine: 50+ Years Completed 02/23/2016, 08/04/2008 Zoster Vaccines Completed 11/03/2020, 08/10/2020 Meningococcal B Vaccine Aged Out No l onger eligible based on patient's age to complete this topic Meningococcal Vaccine Aged Out No keshia taj eligible based on patient's age to complete this topic RSV Immunizations Under 20 Months Aged Out No longer eligible based on patient's age to complete this topic Medical Devices Implanted Type Area Scientific Software Developer Device Identifier Shelf Expiration Date Model / Serial / Lot Iol Tecnis Simplicity Dcb00 - [id number] Implanted:Qty: 1 on 06/24/2024 by Jerome Shah MD at [facility] Lens Right: Eye [employer] [id number] 04/07/2026 DCB00 / [id number] / Iol Tecnis Simplicity Dcb00 - [id number] Implanted:Qty: 1 on 07/22/2024 by Jerome Shah MD at [facility] Lens Left: Eye [employer] [id number] 09/06/2026 DCB00 / [id number] / Procedures Procedure Name Priority Date/Time Associated Diagnosis Comments REMV CATARACT EXTRACAP,INSERT LENS 07/22/2024 9:57 AM CDT H25.12 Case Notes C REMV CATARACT EXTRACAP,INSERT LENS 06/24/2024 9:46 AM CDT H25.11 Case Notes C from Last 3 Months Insurance MEDICARE Care Teams Cash Applications Associate Relationship Specialty Start Date End Date Ander Clark MD [address] [place] [address] PCP - General FAMILY PRACTICE 06/24/24
--- OUTSIDE RECORDS SUMMARY | 2024-08-05 09:25 | XMS_ITS | Clinical Summary ---
Author Organization [facility] [place] [address] Address [address] [place] [address] Care Team Providers Care Wire Setter Name Role Phone Ander Clark MD Primary [...] 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/10/2015 Overview (06/30/2016): Old [place] (myocardial infarction) Post percutaneous transluminal coronary angiopla sty 10/08/2013 Overview (06/30/2016): STATUS-POST PTCA Chronic ischemic heart disease 08/10/2013 Overview (06/29/2016): CHR ISCHEMIC HRT DIS NEC Coronary arteriosclerosis in [place] artery 08/10 Overview (06/30/2016): CRNRY ATHRSCL NATVE VSSL 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 Overview (06/30/2016): MIXED HYPERLIPIDEMIA Acute myocardial infarction of anterior wall Overview (06/30/2016): AMI ANTERIOR WALL,SUBSEQ Encounters Date Type Department Care Team Description 05/20/2024 11:45 AM LIFE ASSURANCE REPRESENTATIVE Office Visit [facility] Medical Group Cardiology [address] [place] [address] Dona Pacheco MD Multiple-type hyperlipidemia (Primary Dx); Coronary arteriosclerosis in [place] artery; S/P drug eluting coronary stent placement; Essential hypertension from Last 3 Months Medical History Medical History Date Comments 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 CAD (coronary artery disease) 2008 H/ O ant [place] and LAD stent Social History Tobacco Use Types Packs/Day Years Used Date Smoking Tobacco: Former Smokeless Tobacco: Never Tobacco Cessation:Counseling Given: Not Answered Alcohol Use Standard Drinks/Week Comments No 0 (1 standard drink = 0.6 oz pur e alcohol) Sex and Gender Information Value Date Recorded Sex Assigned at Not on file Legal Sex Male 8:03 PM LIFE ASSURANCE REPRESENTATIVE Gender Identity Not on file Sexual Orientation Not on file Obstetrics History Last Filed Vital Signs Vital Sign Reading Time Taken Comments Blood Pressure 116/62 05/20/2024 11:39 AM LIFE ASSURANCE REPRESENTATIVE Pulse 57 05/20/2024 11:39 AM LIFE ASSURANCE REPRESENTATIVE Temperature - - Respiratory Rate - - Oxygen Saturation 93% 05/20/2024 11:39 AM LIFE ASSURANCE REPRESENTATIVE Inhaled Oxygen Concentration - - Weight 76.2 kg (168 lb) 05/20/2024 11:39 AM LIFE ASSURANCE REPRESENTATIVE Height 175.3 cm (5' 9 ) 05/20/2024 11:39 AM LIFE ASSURANCE REPRESENTATIVE Body Mass Index 24.81 05/20/2024 11:39 AM LIFE ASSURANCE REPRESENTATIVE Plan of Treatment Health Maintenance Due Date Last Done Comments Depression Screening 1945 Fall Risk Assessment 1945 Hepatitis B Screening 06[birth year]14[birth year]1961 Abdominal Aortic Aneurysm (AAA) Screen 06/14/2008 Well Visit 65+ 06/14/2008 Zoster Vaccine (2 of 2) 10/05/2020 08/10/2020 Covid-19 Vaccine (3 - season) 2023, 05/21/2020 Influenza Vaccine (Season Ended) 2024 02/08/20 19, 02/01/2018 DTaP/Tdap/Td Vaccine (2 - Td or Tdap) 08/10/2030, 08/04/2008 Pneumococcal vaccine 65+ Completed 02/23/2016, 07/25 Procedures Procedure Name Priority Date/Time Associated Diagnosis Comments POCT LIPID PANEL Routine 05/20/2024 11:5 2 AM LIFE ASSURANCE REPRESENTATIVE 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
== END 2024-08-05 09:19 | disposition home or self-care (01) ==
PROVIDERS: PCP Family Medicine; Visit Provider Family Medicine
DX: R90.82 White matter disease, unspecified (principal); G52.2 Disorders of vagus nerve
CPT/HCPCS: 70250; 70551

== ENCOUNTER 2024-12-18 12:48 | Outpatient (CLI) | payer MEDICARE, SELFPAY ==
--- OUTSIDE RECORDS SUMMARY | 2024-12-18 12:52 | XMS_ITS | Clinical Summary ---
Author Organization [facility] Address [address], [address] [address] Phone Care Team Providers Care Director Of Channel Marketing Name Role Phone Pablo Akers MD Primary Care Provider [phone] Kaiden Zabala DO Unavailable [phone] Allergies No known active allergies Medications polyethylene [...] (Adult) (1 - 1-dose 75+ series) 06/14/2018 SARS-COV-2 Immunization ( - 2023- season) 2023 02/02/2021, 06/16/2020, 05/21/2020 Influenza Immunization (#1) 11/25/202401/25, 02/01/2018 DTaP/Tdap/Td Immunization Discontinued 08/04/2008 Pneumococcal Immunization (5 0+ years) Completed 02/23/2016, 08/04/2008 Pneumococcal Immunization Combined Discontinued 02/23/2016, 08/04/2008 Hepatitis B Immunization Aged Out No longer eligible based on patient's age to complete this topic Human Papillomavirus (HPV) Immunization Aged Out No longer eligible based on patient's age to complete this topic Meningococcal Immunization (ACWY) Aged Out No longer eligible based on patient's age to complete this topic Rotavirus Immunization Aged Out No lo nger eligible based on patient's age to complete this topic Insurance MEDICARE [facility] Care Teams Director Of Channel Marketing Relationship Specialty Start Date End Date Pablo Akers MD [address] [place] [id number] PCP - General Family Medicine 02/16/16 Kaiden Zabala DO [address] [place] [address] Gastroenterology 05/25/16
--- OUTSIDE RECORDS SUMMARY | 2024-12-18 12:52 | XMS_ITS | Clinical Summary ---
Author Organization [facility] Address [address] [place] [address] Care Team Providers Care Sports Betting Manager Name Role Phone Ander Clark MD Primary [...] (81 mg total) by mouth daily. Active Social History Tobacco Use Types Packs/Day Years [...] 9:33 AM CDT Height 170.2 cm (5' 7) 07/22/2024 9:33 AM CDT Body Mass Index [...] this topic Medical Devices Implanted Type Area Architect Intern Device Identifier Shelf Expiration Date Model / Serial / Lot Iol Tecnis Simplicity Dcb00 - [id number] Implanted:Qty: 1 on 06/24/2024 by Jerome Shah MD at [facility] Lens Right: Eye [employer] [id number] 04/07/2026 DCB00 / [id number] / Iol Tecnis Simplicity Dcb00 - [id number] Implanted:Qty: 1 on 07/22/2024 by Jerome Shah MD at [facility] Lens Left: Eye [employer] [id number] 09/06/2026 DCB00 / [id number] / Insurance [employer] MEDICARE Care Teams Sports Betting Manager Relationship Specialty Start Date End Date Ander Clark MD [address] [place] [address] PCP - General FAMILY PRACTICE 06/24/24
--- OUTSIDE RECORDS SUMMARY | 2024-12-18 12:52 | XMS_ITS | Clinical Summary ---
Author Organization [facility] [place] [address] Address [address] [place] [address] Care Team Providers Care Lead Software Developer Name Role Phone Ander Clark MD Primary Care Provider Allergies No known active allergies Medications aspirin (ENTERIC COATED ASPIRIN) 81 mg tablet take 1 tablet (81MG) by oral route every day 30 0 06/26/2008 Active multivitamin tabletIndicatio ns:Vitamin Deficiency Prevention Take 1 tablet by mouth Active carvediloL (COREG) 6.25 mg tablet Take 1 tablet (6.25 mg total) by mouth 2 (two) times a day 04/22/2016 Active ramipriL (ALTACE) 5 mg capsule Take 1 capsule (5 mg total) by mouth daily 90 capsule 3 06/17/2024 Active atorvastatin (LIPITOR) 80 mg tablet TAKE 1 TABLET BY MOUTH EVERY DAY 90 tablet 3 07/18/2024 Active Active Problems Problem Noted Date Diagnosed Date Essential hypertension 05/16/2018 S/P drug eluting coronary stent placement 2018 Essential tremor 05/24/2017 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/10/2015 Overview (06/30/2016): Old [place] (myocardial infarction) Post percutaneous transluminal coronary angiopla sty 10/08/2013 Overview (06/30/2016): STATUS-POST PTCA Chronic ischemic heart disease 08/10/2013 Overview (06/29/2016): CHR ISCHEMIC HRT DIS NEC Coronary 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 08/10 Overview (06/30/2016): CRNRY ATHRSCL NATVE VSSL 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 Overview (06/30/2016): MIXED HYPERLIPIDEMIA Acute myocardial infarction of anterior wall Overview (06/30/2016): AMI ANTERIOR WALL,SUBSEQ Medical History Medical History Date Comments 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 CAD (coronary artery disease) 2008 H/ O ant [place] and LAD stent Social History Tobacco Use Types Packs/Day Years Used Date Smoking Tobacco: Former Smokeless Tobacco: Never Tobacco Cessation:Counseling Given: Not Answered Alcohol Use Standard Drinks/Week Comments No 0 (1 standard drink = 0.6 oz pur e alcohol) Sex and Gender Information Value Date Recorded Sex Assigned at Not on file Legal Sex Male 8:03 PM SLATE HANDLER Gender Identity Not on file Sexual Orientation Not on file Obstetrics History Last Filed Vital Signs Vital Sign Reading Time Taken Comments Blood Pressure 116/62 05/20/2024 11:39 AM SLATE HANDLER Pulse 57 05/20/2024 11:39 AM SLATE HANDLER Temperature - - Respiratory Rate - - Oxygen Saturation 93% 05/20/2024 11:39 AM SLATE HANDLER Inhaled Oxygen Concentration - - Weight 76.2 kg (168 lb) 05/20/2024 11:39 AM SLATE HANDLER Height 175.3 cm (5' 9) 05/20/2024 11:39 AM SLATE HANDLER Body Mass Index 24.81 05/20/2024 11:39 AM SLATE HANDLER Plan of Treatment Health Maintenance Due Date Last Done Comments Depression Screening 1943 Fall Risk Assessment 1945 Hepatitis B Screening 06[birth year]14[birth year]1961 Abdominal Aortic Aneurysm (AAA) Screen 06/14/2008 Well Visit 65+ 06/14/2008 Zoster Vaccine (2 of 2) 10/05/2020 08/10/2020 Covid-19 Vaccine (3 - season) 2024, 05/21/2020 Influenza Vaccine (#1) 2024 02/07/2019, 2017 DTaP/Tdap/Td Vaccine (2 - Td or Tdap) 08/10/2030, 08/04/2008 Pneumococcal vaccine 65+ Completed 02/23/2016, 07/25 Insurance MEDICARE [facility] MEDICARE SUPPLEMENT Care Teams Lead Software Developer Relationship Specialty Start Date End Date Ander Clark MD PCP - General Family Practice 05/16/18
[2024-12-18 19:03] LABS: Alanine Aminotransferase 47 U/L (6-50); Albumin Level 4.2 g/dL (3.5-5.1); Alkaline Phosphatase 99 U/L (38-126); Anion Gap 6 mmol/L (4-12); Aspartate Amino Transferase 45 U/L (17-59); Bilirubin,Total 0.5 mg/dL (0.2-1.3); Blood Urea Nitrogen 9 mg/dL (9-20); Calcium 9.1 mg/dL (8.4-10.2); Carbon Dioxide 29 mmol/L (22-30); Chloride 101 mmol/L (98-107); Estimated Glomerular Filt Rate > 60; Glucose 166 mg/dL (65-110); Potassium 4.3 mmol/L (3.4-5.0); Sodium 136 mmol/L (137-145); Total Protein 6.7 g/dL (6.3-8.2)
== END 2024-12-18 12:49 | disposition home or self-care (01) ==
LOC: ANHGOSHLAB 12:49
PROVIDERS: PCP Family Medicine; Visit Provider Family Medicine
DX: I10 Essential (primary) hypertension (principal); Z79.899 Other long term (current) drug therapy
CPT/HCPCS: 36415; 80053